=== PATIENT | female | born 1985 | race Caucasian/White ===

== ENCOUNTER 2025-04-08 10:12 | Day surgery (SDC) | payer OTHER ==
[2025-04-07 14:39] VITALS: BMI 21.4
[2025-04-08 11:00] VITALS: TEMP 98
[2025-04-08] MEDS ORDERED: PROPOFOL 20 ML ONE (11:37)
[2025-04-08 12:30] VITALS: BP 114/68; PULSE 69; RESP 19
== END 2025-04-08 12:50 | disposition home or self-care (01) ==
LOC: FASU-ENDO 10:12
PROVIDERS: ATTEND Internal Medicine Gastroenterology
PROC: 0DB78ZX Excision of Stomach, Pylorus, Via Natural or Artificial Opening Endoscopic, Diagnostic (ICD-10-PCS; 2025-04-08)
PROC: 0DB68ZX Excision of Stomach, Via Natural or Artificial Opening Endoscopic, Diagnostic (ICD-10-PCS; 2025-04-08)
PROC: 0DB48ZX Excision of Esophagogastric Junction, Via Natural or Artificial Opening Endoscopic, Diagnostic (ICD-10-PCS; 2025-04-08)
PROC: 0DB98ZX Excision of Duodenum, Via Natural or Artificial Opening Endoscopic, Diagnostic (ICD-10-PCS; principal; 2025-04-08 11:43)
DX: K29.50 Unspecified chronic gastritis without bleeding (principal); K20.90 Esophagitis, unspecified without bleeding
CPT/HCPCS: 81025; 88305-TC; 88342-TC